=== PATIENT | male | born 1985 | race Two or more races ===

== ENCOUNTER → 2020-09-01 08:00 | Outpatient (CLI) | payer OTHER | END | disposition home or self-care (01) | LOC: LAB 08:00 → ADM 14:15 → AMB-ENDOS 09-08 14:15 → EDSTATUS 09-08 14:15 | PROVIDERS: ATTEND Surgery | DX: Z03.818 Encounter for observation for suspected exposure to other biological agents ruled out (principal); K57.20 Diverticulitis of large intestine with perforation and abscess without bleeding; K65.1 Peritoneal abscess; R10.32 Left lower quadrant pain; R19.5 Other fecal abnormalities ==